=== PATIENT | male | born 1955 | race Caucasian/White ===

== ENCOUNTER 2016-09-18 06:51 | Observation (INO) | payer OTHER ==
[2016-09-07 09:42] LABS: BASOPHILS 0.3 %; BASOPHILS ABSOLUTE 0.03 10/3/uL (0.0-0.16); EOSINOPHILS 6.2 %; EOSINOPHILS ABSOLUTE 0.63 10/3/uL (0.0-0.53); HEMATOCRIT 44.9 % (40.0-51.0); HEMOGLOBIN 15.8 g/dL (13.6-17.8); IMMATURE GRANULOCYTES 0.2 %; IMMATURE GRANULOCYTES ABSOLUTE 0.02 10/3/uL (0.0-0.11); LYMPHOCYTES 40.4 %; LYMPHOCYTES ABSOLUTE 4.12 10/3/uL (0.67-4.30); MEAN CORPUS HGB CONC 35.2 g/dL (32.0-36.0); MEAN CORPUSCULAR HEMOGLOB 32.1 pg (26.0-34.0); MEAN CORPUSCULAR VOLUME 91.3 fL (80-100); MEAN PLATELET VOLUME 11.7 fL (9.2-13.0); MONOCYTES 9.6 %; MONOCYTES ABSOLUTE 0.98 10/3/uL (0.21-1.20); NEUTROPHILS 43.3 %; NEUTROPHILS ABSOLUTE 4.42 10/3/uL (2.02-8.40); PLATELET COUNT 303 10/3/uL (150-400); RBC DISTRIBUTION WIDTH 13.6 % (12.0-16.0); RED CELL COUNT 4.92 10/6/uL (4.7-6.1); WHITE BLOOD CELLS 10.2 10/3/uL (4.5-10.5)
[2016-09-07 09:43] LABS: MANUAL DIFF NO %
[2016-09-07 10:02] LABS: A/G RATIO 1.3 (0.7-1.9); ALBUMIN 3.8 G/DL (3.5-5.0); ALKALINE PHOSPHATASE 70 U/L (45-117); BUN (BLOOD UREA NITROGEN) 23 MG/DL (6-23); CALCIUM, SERUM 9.1 MG/DL (8.5-10.4); CHLORIDE, SERUM 105 MMOL/L (96-112); CO2 (CARBON DIOXIDE) 26 MMOL/L (24-34); CREATININE 1.39 MG/DL (0.70-1.30); GFR AFRICAN AMERICAN 63 ML/MIN (>=60); GFR NON AFRICAN AMERICAN 55 ML/MIN (>=60); GLOBULIN 2.9 G/DL (2.5-4.1); GLUCOSE, SERUM 190 MG/DL (60-99); POTASSIUM, SERUM 4.9 MMOL/L (3.5-5.3); SGOT(AST) 17 U/L (5-40); SGPT(ALT) 26 U/L (5-65); SODIUM, SERUM 141 MMOL/L (135-148); TOTAL BILIRUBIN 0.9 MG/DL (0-1.2); TOTAL PROTEIN 6.7 G/DL (6.0-8.5)
--- NOTE | ~2016-09-18 | OP ---
Record Of Operation [facility] [address] [place]. [address] NAME: JOEY FRANZ : 57 STATUS : ADM [facility] PAT#: [id number] AGE: 61 ADM/REG DATE : 09/18/16 MR#: [id number] REPORT SERV DATE: 09/19/16 DICTATED BY: ISABEL RAMIREZ III DATE: 09/19/16 REPORT STATUS : Draft TRANSCRIBED BY: MODL DATE: 09/19/16 DATE OF PROCEDURE: 09/18/2016 PREOPERATIVE DIAGNOSIS: Symptomatic incisional hernia diagnosis. POSTOPERATIVE DIAGNOSIS: Symptomatic incisional hernia diagnosis, incarcerated left subcostal incisional hernia. PROCEDURE: Repair of left subcostal incisional hernia with Prolene mesh. SURGEON: Isabel Ramirez M.D. ANESTHESIA: General with intubation. COMPLICATIONS: None. ESTIMATED BLOOD LOSS: 5 mL. SPECIMENS: None. DRAINS: Jeffry-Deng in subcutaneous tissue. LAP AND SPONGE COUNT: Correct x3. BRIEF HISTORY: This 61-year-old male presented with a symptomatic left subcostal incisional hernia. This is related to a previous splenectomy. It was felt that open repair of this hernia was indicated. The procedure, risks, benefits, and alternatives, including but not limited to the risk for bleeding, infection, enterotomy, injury to any abdominal structure, postop small bowel obstruction, ileus, seroma formation, hematoma formation, recurrence of the hernia, infection of the mesh, or enterocutaneous fistula requiring removal of the mesh, and unforeseen complications including deep venous thrombosis, pulmonary embolus, myocardial infarction, stroke, pneumonia, and were fully and completely explained to the patient and his family prior to the surgery. The fact that this was a major operation with risk for major morbidity and mortality was explained, and expected length of recovery was explained. The patient had questions, which were answered. He fully understood the risks and agreed to surgery as planned. FINDINGS: The patient had a left subcostal incisional hernia. There were several loops of small bowel chronically incarcerated within this. DESCRIPTION OF PROCEDURE: After being properly identified and after discussing the risks of surgery with the patient and his family again in the preoperative area, and after identifying the hernia with him in the preoperative area, the patient was taken to the operating room and placed in supine position on the operating room table. General anesthesia was administered. He was intubated without difficulty. The abdomen was prepped and draped sterilely in the usual fashion. After an appropriate "time-out" per [facility] Record Of Operation [facility] [address] [place]. [address] NAME: JOEY FRANZ : 57 STATUS : ADM [facility] PAT#: [id number] AGE: 61 ADM/REG DATE : 09/18/16 MR#: [id number] REPORT SERV DATE: 09/19/16 DICTATED BY: ISABEL RAMIREZ III DATE: 09/19/16 REPORT STATUS : Draft TRANSCRIBED BY: MODIvan DATE: 09/19/16 standards, the previous left subcostal incision was reopened directly over the hernia in the mid left subcostal region. The incision was continued through the subcutaneous tissue. We immediately encountered several loops of small bowel which had herniated into the abdominal wall. Using sharp dissection, these loops of small bowel were carefully dissected free from the surrounding subcutaneous tissue and reduced back in the abdominal cavity. The fascial defect was clearly defined. The defect was some 4 to 5 cm in length. Using sharp dissection, the skin and subcutaneous tissue around the defect anteriorly was fully mobilized so as to fully define the fascial edges anteriorly. There were adhesions between several loops of small bowel and the fascia posteriorly and these were carefully divided. In this way, the fascial edges were clearly defined anteriorly and posteriorly. The fascial defect was clearly defined and did not cross the midline. Hemostasis was assured. We selected a light weight Prolene mesh. This was placed beneath the fascial defect so as to overlap the edges of the fascial defect posteriorly by about 3 cm. The mesh was then secured around the edges of the defect with interrupted #1 Prolene sutures. Upon completion of this, the mesh lay nicely posterior to the defect. It was not twisted or kinked in any way. It was not in any tension. The fascia was then closed over this anteriorly with interrupted #1 Prolene sutures. This came together nicely with no tension. The wound was irrigated copiously with saline. Hemostasis was assured. A Jeffry Deng drain was brought through a separate stab wound and placed in the subcutaneous tissue. The subcutaneous tissue was closed with a running 3-0 chromic suture. The skin was closed with a running subcuticular 4-0 Monocryl stitch. The incision was injected with 0.5% Marcaine. Dressings were applied. Anesthesia was reversed, and the patient was taken to the recovery room in stable condition. He tolerated the procedure well. His family was informed the results of surgery. The patient will remain in the hospital for postoperative care. RHJ/BRUNOL Isabel Ramirez III, M.D. / [id number] CC: Keyshawn Narvaez III, M.D.
--- NOTE | ~2016-09-18 | PREOPHP ---
PreOp History and Physical [facility] [id number] [place]. [address] NAME: JOEY FRANZ : 57 STATUS : PRE [facility] PAT#: [id number] AGE: 61 ADM/REG DATE : MR#: [id number] REPORT SERV DATE: 09/18/16 DICTATED BY: ISABEL RAMIREZ III DATE: 08/23/16 REPORT STATUS : Draft TRANSCRIBED BY: MODIvan DATE: 08/23/16 HISTORY OF PRESENT ILLNESS: This 61-year-old male comes to the operating room for open repair of a large symptomatic left subcostal incisional hernia. The patient has a left subcostal incisional hernia. This hernia is related to a previous splenectomy and liver transplant. The hernia has become larger with time. The hernia is associated with local pain and discomfort. The patient has had no nausea, vomiting, or obstructive symptoms. He comes to the operating room now for open repair of this hernia. PAST MEDICAL HISTORY: 1. Previous history of cirrhosis, status post liver transplant eight years ago. 2. 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 3. Hepatitis C. 4. Type 2 diabetes mellitus. 5. Hypertension. 6. Depression. 7. Narcolepsy. 8. Asthma. 9. History of deep venous thrombosis of the lower extremities. 10.History of periodic encephalopathy. PAST SURGICAL HISTORY: Includes left hip surgery, splenectomy, liver transplant, bilateral knee surgery, multiple shoulder surgeries, appendectomy, and tonsillectomy. FAMILY HISTORY: Positive for hypertension and cancer. SOCIAL HISTORY: No history of tobacco abuse. The patient has no history of alcohol use. He is retired and . He lives locally. ALLERGIES: NONE. REVIEW OF SYSTEMS: The patient complains of left-sided abdominal pain related to his hernia and complains of palpitations. His 14-point review of systems is otherwise unremarkable except for tingling, numbness, and depression. MEDICATIONS: Betamethasone, bupropion, Cialis, Coreg, vitamins, gabapentin, magnesium, insulin, Prograf, Tessalon, and vitamin B12. OBJECTIVE PHYSICAL EXAM: GENERAL: This is a male, in no acute distress. He is alert and oriented x3. VITAL SIGNS: Blood pressure 134/81, pulse 66, temperature 97.3. HEENT: Unremarkable. Cranial nerves II through XII are normal. LUNGS: Clear. CARDIAC: Normal. ABDOMEN: Soft, nontender. The patient has a large left subcostal incisional hernia. The fascial defect is 5 to 6 cm in size. The hernia is not reducible. PreOp History and Physical [address] [address] NAME: JOEY FRANZ : 57 STATUS : PRE [facility] PAT#: [id number] AGE: 61 ADM/REG DATE : MR#: [id number] REPORT SERV DATE: 09/18/16 DICTATED BY: ISABEL RAMIREZ III DATE: 08/23/16 REPORT STATUS : Draft TRANSCRIBED BY: ALY DATE: 08/23/16 EXTREMITIES: Normal. ASSESSMENT: A 61-year-old male with, 1. Enlarging symptomatic left subcostal incisional hernia. 2. Hepatitis C. 3. Hypertension. 4. Type 2 diabetes mellitus. 5. History of liver transplant and splenectomy. 6. Depression. 7. Narcolepsy. 8. History of deep venous thrombosis. 9. Asthma. 10.History of encephalopathy. PLAN: The patient comes to the operating room now for open repair of this incisional hernia. This procedure, the risks, benefits, and alternatives, including not limited to the risk for bleeding, infection, enterotomy, injury to abdominal structure, postop small bowel obstruction, ileus, recurrence of the hernia, seroma formation, hematoma formation, infection of the mesh, or enterocutaneous fistula requiring removal of the mesh, and unforeseen complications including deep venous thrombosis, pulmonary embolus, myocardial infarction, stroke, pneumonia, , have been fully and completely explained to patient length prior to surgery. The fact that this is a major operation with risk for major morbidity and mortality has been explained speckling recovery has been explained. The option of nonoperative management has been offered to the patient but declined. The patient's questions were answered. He understands the risks and agrees to surgery as planned. EMANI/ALY Isabel Ramirez III, M.D. / [id number]
[~2016-09-18 06:51] MED LIST: CELLCEPT2 PO; CELLCEPT5 PO; COREG12 PO; LEVEMIR SC; MAGNESIUM PO; MULTIVITAMI1 PO; NEUR300 PO; NEUR600 PO; NORV5 PO; NOVLOGPUMP SC; NOVOLOG SC; PEGASYS180 MCG/M SC; PRILO PO; PRIN10 PO; PROGRAF1; PROGRAF1 PO; SINGULAIR1 PO; SPIRO25 PO; VITAMIN D2000 UNIT PO; WELLSR150 PO; WELLXL300 PO; [UNRECOGNIZED DRUG - OTHER] PO
[2016-09-19 06:19] LABS: BASOPHILS 0.1 %; BASOPHILS ABSOLUTE 0.01 10/3/uL (0.0-0.16); EOSINOPHILS 0.2 %; EOSINOPHILS ABSOLUTE 0.03 10/3/uL (0.0-0.53); HEMATOCRIT 43.2 % (40.0-51.0); HEMOGLOBIN 14.8 g/dL (13.6-17.8); IMMATURE GRANULOCYTES 0.3 %; IMMATURE GRANULOCYTES ABSOLUTE 0.06 10/3/uL (0.0-0.11); LYMPHOCYTES 19.9 %; LYMPHOCYTES ABSOLUTE 3.69 10/3/uL (0.67-4.30); MANUAL DIFF NO %; MEAN CORPUS HGB CONC 34.3 g/dL (32.0-36.0); MEAN CORPUSCULAR VOLUME 93.3 fL (80-100); MEAN PLATELET VOLUME 11.2 fL (9.2-13.0); MONOCYTES 9.1 %; MONOCYTES ABSOLUTE 1.69 10/3/uL (0.21-1.20); NEUTROPHILS 70.4 %; NEUTROPHILS ABSOLUTE 13.09 10/3/uL (2.02-8.40); PLATELET COUNT 275 10/3/uL (150-400); RED CELL COUNT 4.63 10/6/uL (4.7-6.1); WHITE BLOOD CELLS 18.6 10/3/uL (4.5-10.5)
[2016-09-19 06:29] LABS: CHLORIDE, SERUM 107 MMOL/L (96-112); CO2 (CARBON DIOXIDE) 24 MMOL/L (24-34); CREATININE 1.81 MG/DL (0.70-1.30); GFR AFRICAN AMERICAN 46 ML/MIN (>=60); GFR NON AFRICAN AMERICAN 40 ML/MIN (>=60); GLUCOSE, SERUM 217 MG/DL (60-99); POTASSIUM, SERUM 5.1 MMOL/L (3.5-5.3); SODIUM, SERUM 139 MMOL/L (135-148)
[2016-09-19 06:33] LABS: BUN (BLOOD UREA NITROGEN) 35 MG/DL (6-23); CALCIUM, SERUM 8.1 MG/DL (8.5-10.4)
[2016-09-19] MEDS ORDERED: PERCOCET 7.5/321 TAB PO (08:49)
== END 2016-09-19 16:58 | disposition home or self-care (01) ==
LOC: SDC 06:51 → SDC/OF 09:55 → 5SO 16:02
PROVIDERS: Surgery
PROC: 0WUF0JZ Supplement Abdominal Wall with Synthetic Substitute, Open Approach (ICD-10-PCS; principal; 2016-09-18 08:00)
DX: K43.0 Incisional hernia with obstruction, without gangrene (principal); E11.9 Type 2 diabetes mellitus without complications; F32.9 Major depressive disorder, single episode, unspecified; G47.419 Narcolepsy without cataplexy; N18.9 Chronic kidney disease, unspecified; I12.9 Hypertensive chronic kidney disease with stage 1 through stage 4 chronic kidney disease, or unspecified chronic kidney disease; J45.909 Unspecified asthma, uncomplicated; Z94.4 Liver transplant status; Z86.718 Personal history of other venous thrombosis and embolism; Z90.49 Acquired absence of other specified parts of digestive tract; Z90.89 Acquired absence of other organs
CPT/HCPCS: 71020; 80048; 80053; 82962; 85025; 87641; 93005; 96372; 96374; 96375; 96376; A9270-GY; C1781; G0378; J0690; J2250; J2270; J2405; J2710; J3010; J3370; J7507